=== PATIENT | male | born 1945 | race Caucasian/White ===

== ENCOUNTER → 2019-10-15 | Outpatient (CLI) | payer MEDICARE ==
[~2019-10-15] MED LIST: AMARYL4 MG PO; CIALIS; LISINOPRIL10 MG PO; LOW DOSE ASPIRI81 MG PO; METFORMIN500 MG PO; OSTEO-BI-FLEX 21 TAB PO; PEPCID COMPLETE1 CTB PO; SIMVASTATIN40 MG PO
== END ==
LOC: COL.RAD
DX: R10.11 Right upper quadrant pain (principal)